=== PATIENT | male | born 1965 | race Caucasian/White ===

== ENCOUNTER 2016-10-09 20:26 | Emergency (ER) | payer OTHER ==
[~2016-10-09] VITALS: Ht 188 cm; Wt 127.0 kg
[2016-10-09 20:42] VITALS: BP_SYST 189
[2016-10-09] MEDS ORDERED: ASPIRIN 81 MG TAB.CHEW PO ONE (21:00)
[2016-10-09 21:39] LABS: BASOPHILS % (AUTO) 0.4 % (0.0-2.0); EOSINOPHILS # (AUTO) 0.1 K/uL (0.0-0.4); EOSINOPHILS % (AUTO) 0.6 % (0.0-4.0); HEMATOCRIT 40.4 % (36-54); HEMOGLOBIN 13.4 g/dL (14.0-18.0); LYMPHOCYTES % (AUTO) 18.9 % (20.5-51.5); MEAN CORPUSCULAR HEMOGLOBIN 30 pg (27-31); MEAN CORPUSCULAR HGB CONC 33 % (32-36); MEAN CORPUSCULAR VOLUME 90 fL (79.0-98.0); MONOCYTES # (AUTO) 0.8 K/uL (0.0-1.0); MONOCYTES % (AUTO) 7.1 % (1.7-9.3); NEUTROPHILS # (AUTO) 7.9 K/uL (1.8-7.7); PLATELET COUNT (AUTO) 231 K/uL (130-430); RED CELL DISTRIBUTION WIDTH 12.2 % (9.0-15.0); WHITE BLOOD COUNT (AUTO) 10.8 K/uL (4.8-10.8)
[2016-10-09 21:50] LABS: CALCIUM 8.9 mg/dL (8.4-11.0); CHLORIDE 106 mmol/L (98-107); CREATININE 1.02 mg/dL (0.55-1.30); GLUCOSE 199 mg/dL (70-99); SODIUM SERUM 136 mmol/L (136-145); UREA NITROGEN, BLOOD 16 mg/dL (8-21)
[2016-10-09 21:54] LABS: GFR AFRICAN AMERICAN 98 mL/min (>90)
[2016-10-09 21:55] LABS: ANION GAP < 3 (5-15)
[2016-10-09 21:56] LABS: PROTHROMBIN TIME 10.6 SECS (9.5-12.5); TOTAL BILIRUBIN 0.2 mg/dL (0.0-1.0)
[2016-10-09 21:57] LABS: ALANINE AMINOTRANSFERASE 28 U/L (12-78); ALBUMIN 3.7 g/dL (3.4-4.8); ASPARTATE AMINOTRANSFERASE 13 U/L (10-37); CHOLESTEROL 137 mg/dL (<200); HDL CHOLESTEROL 42 mg/dL (>45); LDL CHOLESTEROL 74 mg/dL (<100); TOTAL PROTEIN, SERUM 7.3 g/dL (6.4-8.3); TRIGLYCERIDES 174 mg/dL (30-150)
[2016-10-09 22:53] VITALS: BP_SYST 146
== END 2016-10-09 22:53 | disposition home or self-care (01) ==
LOC: SED 20:26
DX: R07.89 Other chest pain (principal); I10 Essential (primary) hypertension; F41.9 Anxiety disorder, unspecified
CPT/HCPCS: 36415; 80053; 80061; 83880; 84484; 85025; 85379; 85610-TC; 93005; 99285